=== PATIENT | female | born 1970 | race Two or more races ===

== ENCOUNTER → 2024-05-15 | Outpatient (CLI) | payer BC, SELFPAY ==
[2024-05-15 08:22] LABS: Collection Type, Urine Clean Catch
[2024-05-15 08:58] LABS: Bacteria,Urine Rare; Bilirubin,Urine Negative (Negative); Blood,Urine 2+ (Negative); Clarity,Urine Clear (Clear/Hazy); Color,Urine Lt-Yellow (Lt Yel-Yel); Culture Indicated,Urine Not Indicated; Glucose, Urine Negative (Negative); Ketones,Urine Negative (Negative); Leukocyte Esterase,Urine Negative (Negative); Nitrite,Urine Negative (Negative); PH,Urine 6.5 (5.0-7.0); Protein,Urine Negative (Neg - Trace); RBC,Urine 6 /hpf (0-3); Specific Gravity,Urine 1.017 (1.001-1.035); Squamous Epithelial Cell,Urine 4 /hpf (0-5); Urobilinogen,Urine Negative mg/dL (0.0-1.0); WBC,Urine 1 /hpf (0-5)
[2024-05-15 08:58] LABS: Basophils # (Auto) 0.1 Thou/mm3 (0.0-0.2); Basophils % (Auto) 1 % (0-2.5); Eosinophils # (Auto) 0.2 Thou/mm3 (0.0-0.5); Eosinophils % (Auto) 3 % (0-10); Hematocrit 41.5 % (36.0-46.0); Hemoglobin 13.8 g/dL (12.0-16.0); Immature Granulocytes % (Auto) 0 % (0-0); Immature Granulocytes Auto 0.03 Thou/mm3 (0.00-0.00); Lymphocytes # (Auto) 2.9 Thou/mm3 (1.0-4.8); Lymphocytes % (Auto) 31 % (10-50); Mean Corpuscular HGB Conc 33.3 g/dl (31.0-37.0); Mean Corpuscular Hemoglobin 29.6 pg (25.0-35.0); Mean Corpuscular Volume 89 fL (80-100); Monocytes # (Auto) 0.7 Thou/mm3 (0.0-0.8); Monocytes % (Auto) 7 % (0-12); Neutrophils # (Auto) 5.5 Thou/mm3 (1.8-7.7); Neutrophils % (Auto) 59 % (37-80); Nucleated Red Blood Cell % 0 /100 WBC (0); Platelet Count 374 Thou/mm3 (140-440); RDW Standard Deviation 40.5 fL (36.4-46.3); Red Blood Count 4.67 Miln/mm3 (4.00-5.20); White Blood Count 9.4 Thou/mm3 (3.6-11.0)
[2024-05-15 09:03] LABS: Glucose Estimated Average 117 mg/dL (80-131); Hemoglobin A1C 5.7 % Hgb (4.8-6.0)
[2024-05-15 09:24] LABS: Alanine Aminotransferase 23 U/L (10-49); Albumin/Globulin Ratio 1.4 (1.2-2.2); Alkaline Phosphatase 55 U/L (46-116); Anion Gap 7 (7-16); Aspartate Amino Transferase 19 U/L (0-34); BUN/Creatinine Ratio 16 Ratio (12-20); Bilirubin,Total 0.4 mg/dL (0.3-1.2); Blood Urea Nitrogen 11 mg/dL (9-23); Calcium 8.7 mg/dL (8.3-10.6); Calcium (Corrected) 8.7 mg/dL (8.5-10.1); Carbon Dioxide 26.8 mMol/L (20.0-31.0); Cardiac Risk Estimate 4.6 RATIO (3.7-5.6); Chloride 108 mMol/L (98-107); Cholesterol 173 mg/dL (132-200); Creatinine (Component) 0.7 mg/dL (0.6-1.3); Globulin 2.8 gm/dL (2.3-3.5); Glucose 103 mg/dL (74-106); HDL Cholesterol 38 mg/dL (40-60); LDL Cholesterol,Calculated 98 mg/dL (0-130); Osmolality,Calculated 282 (275-295); Potassium 4.7 mMol/L (3.4-5.1); Sodium 142 mMol/L (136-145); Thyroid Stimulating Hormone 3.99 uIU/mL (0.55-4.78); Total Protein 6.8 gm/dL (5.7-8.2); Triglycerides 183 mg/dL (30-150); eGFR > 60 See Note
== END | disposition home or self-care (01) ==
LOC: COPL 06:43
PROVIDERS: PCP Nurse Practitioner Family; Referring Provider Nurse Practitioner Family; Visit Provider Nurse Practitioner Family
DX: Z00.00 Encounter for general adult medical examination without abnormal findings (principal)
CPT/HCPCS: 36415; 80053; 80061; 81001; 83036; 84443; 85025

== ENCOUNTER 2024-09-09 18:16 | Emergency (ER) | payer BC, SELFPAY ==
[2024-09-09 18:17] VITALS: BMI 57.6
--- NOTE | 2024-09-09 19:00 | EKG_ITS ---
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
[2024-09-09 19:26] VITALS: BP 138/93; PULSE 86; RESP 20; TEMP 36.8; O2SAT 95
--- NOTE | 2024-09-09 19:39 | XR_ITS ---
Examination: Upright PA chest single view TECHNIQUE: Upright PA chest single view Date and time: September 09, 20242015 hours Comparison October 04, 2022 INDICATIONS: Seizure one hour ago FINDINGS: No aspiration pneumonia. Normal heart size The osseous structures are intact IMPRESSION: Negative for aspiration pneumonia
--- NOTE | 2024-09-09 19:39 | XR_ITS ---
Examination: CT brain head without contrast. 2-D sagittal coronal reconstructions Date and time of exam:September 09, 2024, 1950 hours Comparison November 03, 2012 INDICATIONS: New onset seizure today with left-sided facial pain CTDI: vol (mGy):83.5 DLP: (mGycm):1075 Technique: Multiple CT axial sections of the brain have been obtained, 5 mm slice thickness. Contrast has not been administered. 2-D sagittal, coronal reconstructions have been obtained Low dose protocols were performed. One or more of the following dose reduction techniques were used; automated exposure control, adjustment of the mA and/or KV according to patient size, use of iterative reconstruction technique. Findings: No significant ventricular enlargement. Intra-axial or extra-axial hemorrhage density is not seen. No mass effect or midline shift Basal cisterns are not remarkable. Fourth ventricle is midline. Cranial vault intact. Retention cyst in the right maxillary antrum Impression: Negative for acute hemorrhage, mass effect or midline shift Consider elective brain MRI follow-up, pre and postcontrast, seizure protocol
--- NOTE | 2024-09-09 19:43 | EDNOTE_ITS ---
ED Seizures RME/HPI General Chief Complaint: Seizure Stated Complaint: SEIZURE ABOUT 40 MIN AGO Time Seen by Provider: 09/09/24 19:39 Arrival date/time: 09/09/24 18:16 53F with history of HTN presents to ED with for possible seizure about 1 hour ago lasting about 15-30 seconds. Patient describes it as a strong muscle cramp. who witnessed it states it was a full-body seizure. is not sure if it patient was arousable during seizure, but is now back at baseline. Patient has not had a seizure before. Limitations: no limitations Related Data Home Medications ?Medication ?Instructions ?Recorded ?Confirmed lisinopril 30 mg tablet 30 mg PO QDAY 10/09/1810/09 Previous Rx's ?Medication ?Instructions ?Recorded dicyclomine 20 mg tablet 20 mg PO QID PRN abdominal p ain 10/09/18 #30 tabs ondansetron HCl 4 mg tablet 4 mg PO QID PRN nausea and 10/09/18 (Zofran) vomiting #14 tabs Allergies Allergy/AdvReac Type Severity Reaction Status Date / Time Penicillins Allergy Intermediate Swelling Verified 09/09/24 18:20 of Lip/Tongue/Throat Review of Systems Review of Systems Systems Reviewed: All systems reviewed, normal except as documented Constitutional Constitutional: Reports system reviewed and no additional complaints, except as documented, Denies fever(s) and Denies headache(s) ENT Ears, Nose, Mouth, and Throat: Denies disequilibrium and Denies headache(s) Cardiovascular Cardiovascular: Reports system reviewed and no additional complaints, except as documented, Denies chest pain and Denies dyspnea Respiratory Respiratory: Reports system reviewed and no additional complaints, except as documented, Denies cough and Denies dyspnea Gastrointestinal Gastrointestinal: Reports system reviewed and no additional complaints, except as documented, Denies abdominal pain, Denies nausea and Denies vomiting Neurologic Neurologic: Reports system reviewed and no additional complaints, except as documented, Reports as per HPI, Denies confusion, Reports convulsions, Denies disequilibrium and Denies headache(s) Psychiatric Psychiatric: Denies confusion Past Medical History Past Medical History CARDIAC: Negative Cardiac Disorders or Congestive Heart Failure RESPIRATORY: Negative Chronic Obstructive Pulmonary Disease (COPD) or Asthma GENITOURINARY: Negative Renal Disease ENDOCRINE: Negative Diabetes Mellitus Type 1 or Diabetes Mellitus Type 2 HEMATOLOGIC: Negative Sickle Cell Disease Social History SMOKING STATUS: Never smoker ED Exam General Limitations: Present no limitations General appearance: Present alert and in no apparent distress Head Head exam: Present atraumatic Eye Eye exam: Present normal appearance, PERRL and EOMI ENT ENT exam: Present normal exam, normal oropharynx and mucous membranes moist Neck Neck exam: Present normal inspection, full ROM and trachea midline Chest Chest inspection: Present normal inspection and symmetric chest wall rise Respiratory Respiratory exam: Present normal lung sounds bilaterally Cardiovascular Cardiovascular exam: Present regular rate, normal rhythm and normal heart sounds Abdominal Exam Abdominal exam: Present soft and normal bowel sounds Extremities Exam Extremities exam: Present normal inspection and full ROM Back Exam Back exam: Present normal inspection and full ROM Neurological Exam Neurological exam: Present alert, oriented X3 and CN II-XII intact Psychiatric Psychiatric exam: Present normal affect and normal mood Skin Skin exam: Present warm, dry, intact and normal color Course Quality Measures none Orders Category Date Time Status Blood glucose [Bedside Blood Glucose] NOW Care 09/09/24 19:00 Completed EKG (ED ONLY) *Do not use* NOW Care 09/09/24 19:[address] head/brain wo con Stat Exams 09/09/24 19:39 Completed EKG (ED Only) Stat Exams 09/09/24 19:00 Draft XR chest 1V portable Stat Exams 09/09/24 19:39 Completed CBC Stat Lab 09/09/24 20:40 Completed Comprehensive Metabolic Panel Stat Lab 09/09/24 20:40 Completed Drug Screen,Urine Stat Lab 09/09/24 19:40 Completed Lactate (Lactic Acid) Stat Lab 09/09/24 20:40 Completed Magnesium Stat Lab 09/09/24 20:40 Completed Troponin I Stat Lab 09/09/24 20:40 Completed Urinalysis Stat Lab 09/09/24 19:40 Completed Vital Signs Vital signs: Vital Signs Temperature 98.2 F 09/09/24 19:26 Pulse Rate 86 09/09/24 19:26 Respiratory Rate 20 09/09/24 19:26 Blood Pressure 138/93 H 09/09/24 19:26 Pulse Oximetry (%) 95 09/09/24 19:26 Oxygen Delivery Method Room Air 09/09/24 19:26 O2 at 95% on RA and WNLs Seizure MDM Narrative MDM Narrative:: 53F with history of HTN presents to ED with for possible seizure about 1 hour ago lasting about 15-30 seconds. Patient describes it as a strong muscle cramp. who witnessed it states it was a full-body seizure. is not sure if it patient was arousable during seizure, but is now back at baseline. Patient has not had a seizure before. Physical exam reveals clear lungs. RRR. Normal WOB. Patient is afebrile, calm, and alert. Speech normal. Gait normal. EKG is NSR. BS low 100s. CXR normal. CT head normal. Labs all unremarkable. Tox screen neg. UA clean. Counseled to follow-up with PCP for possible referral to neurologist. Unlikely true seizure. Patient data External records reviewed:: [facility] previous records Clinical information provided by:: patient Social determinants that could affect healthcare access:: none Patient has the following chronic illnesses:: HTN How is presenting disease/condition affected by chronic disease/condition?: exacerbated by Evaluation data The following diagnostics were reviewed and interpreted by me:: lab results, radiology exam(s) and EKG tracing(s) Lab and/or radiology exams considered but not ordered:: ordered Interpretation Summary: above Medications / Prescriptions Medications or Prescriptions considered but not ordered:: not ordered Medication administrations:: n/a Consultations Consultation(s) initiated? (list below): No Diagnosis Seizure Differential Diagnosis: intractable seizure disorder, febrile convulsion, focal seizure, generalized seizure, new onset seizure, epileptic seizure, status epilepticus and other (seizure-like activity) Most likely diagnosis given after review of the tests above:: seizure-like activity Admission Indicated Admission indicated?: not indicated Admission Request Was there a request for admission?: No Disposition Plan Disposition Plan: Discharge Discharge Attestation Discharge Attestation: The patient and all family members were given an opportunity to ask questions and understood the discharge instructions. Discharge instructions specifically effects, indications for sooner follow up or return to the emergency department, and the expected course of current diagnosis. Patient condition: Stable Discharge Plan Plan Patient Disposition: HOME (Self Care) Discharge Disposition comment: Stable Prescriptions/Referrals Prescriptions/Med Rec: No Action lisinopril 30 mg Tablet 30 mg PO QDAY ondansetron HCl [Zofran] 4 mg tablet 4 mg PO QID PRN (Reason: nausea and vomiting) Qty: 14 0RF dicyclomine 20 mg tablet 20 mg PO QID PRN (Reason: abdominal pain) Qty: 30 0RF Referrals: Claire Cary FNP [Primary Care Provider] - In 1 week Problem List Clinical Impression: Seizure-like activity Patient/Caregiver Discharge Instructions Education Materials: ED Seizure New Onset Unknown ... Additional Instructions: Please follow-up with PCP within 24-48 hours and return immediately if symptoms worsen. See PCP for possible referral to neurologist. Print Language: Nauruan Stand Alone Forms: Patient Portal Info Letter PARVIN/EAGLE Supervising Physician PARVIN/EAGLE Supervising Physician: Dr. Hughes
[2024-09-09 20:20] LABS: Collection Type, Urine Clean Catch
[2024-09-09 20:56] LABS: Lactate (Lactic Acid) 1.3 mMol/L (0.4-2.0)
[2024-09-09 21:07] LABS: Bacteria,Urine Rare; Bilirubin,Urine Negative (Negative); Blood,Urine 2+ (Negative); Clarity,Urine Clear (Clear/Hazy); Color,Urine Lt-Yellow (Lt Yel-Yel); Glucose, Urine Negative (Negative); Ketones,Urine 1+ (Negative); Leukocyte Esterase,Urine Negative (Negative); Nitrite,Urine Negative (Negative); PH,Urine 6.0 (5.0-7.0); Protein,Urine Negative (Neg - Trace); RBC,Urine 5 /hpf (0-3); Specific Gravity,Urine 1.023 (1.001-1.035); Squamous Epithelial Cell,Urine 2 /hpf (0-5); Urobilinogen,Urine Negative mg/dL (0.0-1.0); WBC,Urine 2 /hpf (0-5)
[2024-09-09 21:08] LABS: Basophils # (Auto) 0.0 Thou/mm3 (0.0-0.2); Basophils % (Auto) 0 % (0-2.5); Eosinophils # (Auto) 0.2 Thou/mm3 (0.0-0.5); Eosinophils % (Auto) 2 % (0-10); Hematocrit 42.8 % (36.0-46.0); Hemoglobin 14.2 g/dL (12.0-16.0); Immature Granulocytes Auto 0.03 Thou/mm3 (0.00-0.00); Lymphocytes # (Auto) 3.4 Thou/mm3 (1.0-4.8); Lymphocytes % (Auto) 29 % (10-50); Mean Corpuscular HGB Conc 33.2 g/dl (31.0-37.0); Mean Corpuscular Hemoglobin 30.0 pg (25.0-35.0); Mean Corpuscular Volume 90 fL (80-100); Monocytes # (Auto) 0.8 Thou/mm3 (0.0-0.8); Monocytes % (Auto) 7 % (0-12); Neutrophils # (Auto) 7.2 Thou/mm3 (1.8-7.7); Neutrophils % (Auto) 62 % (37-80); Nucleated Red Blood Cell # 0.00 Thou/mm3 (0.00-0.00); Nucleated Red Blood Cell % 0 /100 WBC (0); Platelet Count 337 Thou/mm3 (140-440); RDW Standard Deviation 39.4 fL (36.4-46.3); Red Blood Count 4.74 Miln/mm3 (4.00-5.20); White Blood Count 11.7 Thou/mm3 (3.6-11.0)
[2024-09-09 21:14] LABS: Alanine Aminotransferase 22 U/L (10-49); Albumin, Serum 4.3 gm/dL (3.5-5.0); Albumin/Globulin Ratio 1.3 (1.2-2.2); Alkaline Phosphatase 48 U/L (46-116); Anion Gap 8 (7-16); Aspartate Amino Transferase 22 U/L (0-34); BUN/Creatinine Ratio 16 Ratio (12-20); Bilirubin,Total 0.3 mg/dL (0.3-1.2); Blood Urea Nitrogen 13 mg/dL (9-23); Calcium 9.2 mg/dL (8.3-10.6); Calcium (Corrected) 9.2 mg/dL (8.5-10.1); Carbon Dioxide 24.7 mMol/L (20.0-31.0); Chloride 105 mMol/L (98-107); Creatinine (Component) 0.8 mg/dL (0.6-1.3); Estimated Creatinine Clearance 102.6 mL/min (>60); Globulin 3.2 gm/dL (2.3-3.5); Glucose 102 mg/dL (74-106); Magnesium 2.1 mg/dL (1.6-2.6); Osmolality,Calculated 275 (275-295); Potassium 4.1 mMol/L (3.4-5.1); Sodium 138 mMol/L (136-145); Total Protein 7.5 gm/dL (5.7-8.2); Troponin I < 0.002 ng/mL (0.0-0.045); eGFR > 60 See Note
[2024-09-09 21:19] LABS: Amphetamine/Methamp Scrn,U Negative (Negative); Barbiturate Screen,Urine Negative (Negative); Benzodiazepines Screen,Urine Negative (Negative); Benzoylecgonine Screen, Ur Negative (Negative); Fentanyl Screen,Urine Negative (Negative); Opiate Screen,Urine Negative (Negative); THC Screen,Urine Negative (Negative)
== END 2024-09-09 22:11 | disposition home or self-care (01) ==
PROVIDERS: Physician Assistant; Emergency Provider Emergency Medicine; PCP Nurse Practitioner Family
DX: R56.9 Unspecified convulsions (principal); I10 Essential (primary) hypertension
CPT/HCPCS: 36415; 70450; 71045; 80053; 80307; 81001; 83605; 83735; 84484; 85025; 93005; 99284

== ENCOUNTER 2024-09-18 09:57 | Inpatient (IN) | payer BC, SELFPAY ==
[2024-09-18] VITALS (7 sets, daily range): BP systolic 131–180; BP diastolic 94–114; PULSE 75–100; RESP 17–97; TEMP 36.6–37.3; O2SAT 92–99; BMI 55.1
--- NOTE | 2024-09-18 | XR_ITS ---
Examinations: MRI Brain without intravenous contrast. MRI brain with intravenous contrast MRA brain with intravenous contrast. MRA brain without intravenous contrast MRA neck with intravenous contrast Date and time of exam: September 18, 2024 1433 hours INDICATIONS: Onset ataxia fever seizure left facial weakness beginning 10 days ago Technique: Multiple axial and sagittal images of the brain have been obtained Siemens high-resolution 1.5 Pamela short bore scanner is utilized. Sagittal sections, T1-weighted, TR 500, TE 14 Axial sections proton density and T2-weighted, TR 3,000, TE 34, TR 3,000, TE 91 Inversion recovery axial images, TR 9,260, TE 111, TI 2,500 Diffusion weighted images, axial sections, TR 4,800, TE 128, B value 1,000 Axial sections, ADC map, TR 4,800, TE 128. Contrast images have been obtained post intravenous 19 cc Gadolinium. T1-weighted axial and coronal images post contrast have been obtained. Angiographic images of neck and brain are obtained pre and post contrast. 3-D post processing performed, including brain, extracranial neck arterial maximum intensity projections Findings: Sellaturcica is not enlarged. The optic chiasm and infundibular stalk are not remarkable. Prepontine and interpeduncular cisterns are not enlarged. No localized enlargement of the medulla or betty. Fourth ventricle and cerebellar tonsils normal in position. Subacute hemorrhage is not seen. Fourth ventricle is midline. Mass in the cerebellopontine angle region is not evident. 7th and 8th nerve complexes exhibits symmetry. Globes are symmetrical with no retro-orbital mass. Increased white matter signal not seen Diffusion-weighted images demonstrateno focus of restricted diffusion. Mass-effect upon the ventricular system is not identified. Abnormal contrast enhancement is not seen. MRA brain carotid images no carotid stenoses, no cerebral large vessel occlusions Impression: Negative for acute hemorrhage mass effect or midline shift No acute infarct No MR findings diagnostic for demyelinating disease No carotid stenoses No cerebral large vessel arterial occlusions
--- NOTE | 2024-09-18 10:10 | XR_ITS ---
Examination: CT brain head without contrast. 2-D sagittal coronal reconstructions Date and time of exam:September 18, 2024 1028 hours Comparison September 09, 2024 INDICATIONS: Generalized head pain today CTDI: vol (mGy):52.6 DLP: (mGycm):1078 Technique: Multiple CT axial sections of the brain have been obtained, 5 mm slice thickness. Contrast has not been administered. 2-D sagittal, coronal reconstructions have been obtained Low dose protocols were performed. One or more of the following dose reduction techniques were used; automated exposure control, adjustment of the mA and/or KV according to patient size, use of iterative reconstruction technique. Findings: No significant ventricular enlargement. Intra-axial or extra-axial hemorrhage density is not seen. No mass effect or midline shift Basal cisterns are not remarkable. Fourth ventricle is midline. Cranial vault intact. Retention cysts in the right maxillary antrum Impression: Negative for acute hemorrhage, mass effect or midline shift Advise clinical correlation follow-up accordingly
[2024-09-18 10:23] LABS: Basophils # (Auto) 0.1 Thou/mm3 (0.0-0.2); Basophils % (Auto) 1 % (0-2.5); Eosinophils # (Auto) 0.2 Thou/mm3 (0.0-0.5); Eosinophils % (Auto) 1 % (0-10); Hematocrit 42.1 % (36.0-46.0); Hemoglobin 14.5 g/dL (12.0-16.0); Immature Granulocytes Auto 0.07 Thou/mm3 (0.00-0.00); Lymphocytes # (Auto) 4.3 Thou/mm3 (1.0-4.8); Lymphocytes % (Auto) 27 % (10-50); Mean Corpuscular HGB Conc 34.4 g/dl (31.0-37.0); Mean Corpuscular Hemoglobin 30.0 pg (25.0-35.0); Mean Corpuscular Volume 87 fL (80-100); Monocytes # (Auto) 0.9 Thou/mm3 (0.0-0.8); Monocytes % (Auto) 5 % (0-12); Neutrophils # (Auto) 10.8 Thou/mm3 (1.8-7.7); Neutrophils % (Auto) 66 % (37-80); Nucleated Red Blood Cell # 0.00 Thou/mm3 (0.00-0.00); Nucleated Red Blood Cell % 0 /100 WBC (0); Platelet Count 405 Thou/mm3 (140-440); RDW Standard Deviation 38.9 fL (36.4-46.3); Red Blood Count 4.83 Miln/mm3 (4.00-5.20); White Blood Count 16.3 Thou/mm3 (3.6-11.0)
[2024-09-18 10:40] LABS: INR 1.0 (0.9-1.3); Partial Thromboplastin Time 30.6 Seconds (22.0-36.0); Prothrombin Time 10.9 Seconds (9.0-12.2)
[2024-09-18 10:42] LABS: Alanine Aminotransferase 23 U/L (10-49); Albumin, Serum 4.2 gm/dL (3.5-5.0); Albumin/Globulin Ratio 1.4 (1.2-2.2); Alkaline Phosphatase 56 U/L (46-116); Anion Gap 10 (7-16); Aspartate Amino Transferase 17 U/L (0-34); BUN/Creatinine Ratio 19 Ratio (12-20); Bilirubin,Total 0.3 mg/dL (0.3-1.2); Blood Urea Nitrogen 17 mg/dL (9-23); Calcium 8.5 mg/dL (8.3-10.6); Calcium (Corrected) 8.5 mg/dL (8.5-10.1); Carbon Dioxide 26.1 mMol/L (20.0-31.0); Chloride 106 mMol/L (98-107); Creatinine (Component) 0.9 mg/dL (0.6-1.3); Globulin 3.1 gm/dL (2.3-3.5); Glucose 111 mg/dL (74-106); Magnesium 1.6 mg/dL (1.6-2.6); Osmolality,Calculated 285 (275-295); Potassium 3.9 mMol/L (3.4-5.1); Sodium 142 mMol/L (136-145); Total Protein 7.3 gm/dL (5.7-8.2); eGFR > 60 See Note
--- NOTE | 2024-09-18 10:59 | PD.EDRME ---
Rapid Medical Screening Exam RME Arrival date/time: 09/18/24 09:57 53-year-old female with medical history significant for hypertension presents emergency department today for complaints of involuntary movements patient had a visit here to the hospital as well as a visit to [place] where she was admitted patient reports negative CAT scan and negative MRI Chief Complaint: Weakness Vital signs: Vital Signs Temperature 98.5 F 09/18/24 10:11 Pulse Rate 100 09/18/24 10:11 Respiratory Rate 18 09/18/24 10:11 Blood Pressure 180/100 H 09/18/24 10:11 Pulse Oximetry (%) 95 09/18/24 10:11 Oxygen Delivery Method Room Air 09/18/24 10:11
[2024-09-18 11:08] LABS: Collection Type, Urine Clean Catch
[2024-09-18 11:14] LABS: Bilirubin,Urine Negative (Negative); Blood,Urine 1+ (Negative); Clarity,Urine Clear (Clear/Hazy); Color,Urine Lt-Yellow (Lt Yel-Yel); Glucose, Urine Negative (Negative); Ketones,Urine Negative (Negative); Leukocyte Esterase,Urine Negative (Negative); Nitrite,Urine Negative (Negative); PH,Urine 6.0 (5.0-7.0); Protein,Urine Negative (Neg - Trace); RBC,Urine 7 /hpf (0-3); Specific Gravity,Urine 1.021 (1.001-1.035); Squamous Epithelial Cell,Urine 1 /hpf (0-5); Urobilinogen,Urine Negative mg/dL (0.0-1.0); WBC,Urine 1 /hpf (0-5)
[2024-09-18 11:21] LABS: Amphetamine/Methamp Scrn,U Negative (Negative); Barbiturate Screen,Urine Negative (Negative); Benzodiazepines Screen,Urine Negative (Negative); Benzoylecgonine Screen, Ur Negative (Negative); Fentanyl Screen,Urine Negative (Negative); Opiate Screen,Urine Negative (Negative); THC Screen,Urine Negative (Negative)
--- NOTE | 2024-09-18 11:28 | EDNOTE_ITS ---
ED Weakness RME/HPI General Chief complaint: Weakness Stated complaint: Trouble walking, muscle spasms Time Seen by Provider: 09/18/24 11:24 Arrival date/time: 09/18/24 09:57 RME / HPI RME / HPI Narrative: 53-year-old female patient was brought in by family for evaluation after patient was seen by Dr. Alicea for involuntary movement. Onset of symptoms since 10 days ago as episode of neck stiffness, seizure-like activity, described as arousable during activity, lasting for several minutes. Came to the emergency room, and CT scan was done and all came back unremarkable. Was diagnosed with seizure- like activity. Symptoms is getting worse, went to [place], and was admitted for several days, repeat CT scan and MRI of the brain noncontrast was done and were told that everything is normal. Patient follow-up with PCP today and was concerned since symptoms are now involving both side of the body. Initially it was only on the left side. On my initial evaluation patient now have difficulty ambulating due to involuntary movement. According to the family involuntary movements still observed but less during resting and sleeping. On my initial evaluation, patient was noted to be having involuntary movements look like seizure-like activity however patient is awake and talking. 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 Was started on prednisone and valacyclovir. Patient still taking the medication. Denies any headache. Denies any other complaints. Denies any family history of seizure denies any history of seizure. Patient also denies any history of mental disorder. Related Data Home Medications ?Medication ?Instructions ?Recorded ?Confirmed lisinopril 30 mg tablet 30 mg PO QDAY 10/09/1810/09 Previous Rx's ?Medication ?Instructions ?Recorded dicyclomine 20 mg tablet 20 mg PO QID PRN abdominal p ain 10/09/18 #30 tabs ondansetron HCl 4 mg tablet 4 mg PO QID PRN nausea and 10/09/18 (Zofran) vomiting #14 tabs Allergies Allergy/AdvReac Type Severity Reaction Status Date / Time Penicillins Allergy Intermediate Swelling Verified 09/18/24 10:03 of Lip/Tongue/Throat Review of Systems Review of Systems Narrative Review of Systems: Review of system reviewed and within normal limits except mentioned in HPI ED Exam Narrative Physical exam: VITAL SIGNS: Reviewed. GENERAL APPEARANCE: Alert and interactive, follows commands, no acute distress, visible involuntary muscle stiffness, with seizure like activities HEAD AND FACE: Non-traumatic. ENT: PERRL, pink conjunctivitis, eyelid no trauma, Mucous membrane moist. NECK: Supple, nontender, no nuchal rigidity. CHEST: No tenderness, no crepitus, no paradoxical movement, no retractions. LUNGS: Clear, well ventilated, symmetric, no rales, no wheezing, no ronchi, no stridor, good breath sounds bilaterally. HEART: Regular rate, regular rhythm, no murmur, no gallops. ABDOMEN: Soft, positive bowel sounds, nondistended, no guarding, nontender, no rebound, no masses, RECTAL: Deferred. GENITAL: Deferred. NEUROLOGICAL: Gross motor function intact sensory function intact, Appropriate for age. MUSCULOSKELETAL: low back nontender, full range of motion. EXTREMITIES: Nontender, full range of motion. SKIN: Color pink, dry, no rash, no lacerations, no abrasions, no contusions. LYMPHATICS: Deferred. Course Quality Measures none Orders Category Date Time Status Patient Condition Routine Admission 09/18/24 12:25 Ordered Aspiration precautions NOW Care 09/18/24 12:35 Active COVID-19 Screening Questionnaire NOW Care 09/18/24 11:49 Active Decision to Admit X1 Care 09/18/24 11:49 Completed Intake and Output QSHIFT Care 09/18/24 12:30 Ordered Miscellaneous Nursing Order NOW Care 09/18/24 12:25 Active NPO NOW Care 09/18/24 12:35 Active Notify provider NEEDED Care 09/18/24 12:25 Active Obtain weight NOW Care 09/18/24 12:25 Active Sequential Compression Device QSHIFT Care 09/18/24 12:25 Active Consult to Neurology / Tele-Neurology Stat Cons 09/18/24 11:50 Active Diet NPO (NOW) Diet 09/18/24 12:[address] head/brain wo con Stat Exams 09/18/24 10:10 Completed MR brain wwo MRA brn wo p[place]on w Urgent Exams 09/18/24 Ordered Basic Metabolic Panel AM DRAW Lab 09/19/24 05:00 Ordered Basic Metabolic Panel AM DRAW Lab 09/20/24 05:00 Ordered Basic Metabolic Panel AM DRAW Lab 09/21/24 05:00 Ordered C-Reactive Protein Stat Lab 09/18/24 10:18 Completed CBC AM DRAW Lab 09/19/24 05:00 Ordered CBC AM DRAW Lab 09/20/24 05:00 Ordered CBC AM DRAW Lab 09/21/24 05:00 Ordered CBC Stat Lab 09/18/24 10:18 Completed Comprehensive Metabolic Panel Stat Lab 09/18/24 10:18 Completed Creatine Kinase Stat Lab 09/18/24 10:18 Completed Drug Screen,Urine Stat Lab 09/18/24 11:02 Completed HCG Qualitative,Urine Stat Lab 09/18/24 11:02 Completed Lipid Panel AM DRAW Lab 09/19/24 05:00 Ordered Liver Panel AM DRAW Lab 09/19/24 05:00 Ordered MRSA Nasal Screen Routine Lab 09/18/24 12:25 Ordered Magnesium AM DRAW Lab 09/19/24 05:00 Ordered Magnesium Stat Lab 09/18/24 10:18 Completed Partial Thromboplastin Time Stat Lab 09/18/24 10:18 Completed Phosphorous AM DRAW Lab 09/19/24 05:00 Ordered Prothrombin Time with INR AM DRAW Lab 09/19/24 05:00 Ordered Prothrombin Time with INR Stat Lab 09/18/24 10:18 Completed Sed Rate (ESR) Stat Lab 09/18/24 10:18 Completed Thyroid Stimulating Hormone AM DRAW Lab 09/19/24 05:00 Ordered Urinalysis Stat Lab 09/18/24 11:02 Completed Acetaminophen Tab [Tylenol Tab] Med 09/18/24 12:24 Active 650 mg PO Q6H PRN Ondansetron Inj [Zofran Inj] Med 09/18/24 12:24 Active 4 mg IV Q6H PRN Senna [Senokot] Med 09/18/24 12:24 Active 2 tab PO BID PRN hydrALAZINE INJ [Apresoline Inj] Med 09/18/24 12:36 Active 10 mg IVP Q6HR PRN Code Status Routine Oth 09/18/24 12:24 Ordered Oxygen Delivery DAILY RT 09/18/24 12:25 Active Vital Signs Vital signs: Vital Signs Temperature 98.5 F 09/18/24 10:11 Pulse Rate 100 09/18/24 10:11 Respiratory Rate 18 09/18/24 10:11 Blood Pressure 180/100 H 09/18/24 10:11 Pulse Oximetry (%) 95 09/18/24 10:11 Oxygen Delivery Method Room Air 09/18/24 10:11 Weakness MDM Narrative [facility] Narrative:: 53-year-old female patient was brought in by family for evaluation after patient was seen by Dr. Alicea for involuntary movement. Onset of symptoms since 10 days ago as episode of neck stiffness, seizure-like activity, described as arousable during activity, lasting for several minutes. Came to the emergency room, and CT scan was done and all came back unremarkable. Was diagnosed with seizure- like activity. Symptoms is getting worse, went to [place], and was admitted for several days, repeat CT scan and MRI of the brain noncontrast was done and were told that everything is normal. Patient follow-up with PCP today and was concerned since symptoms are now involving both side of the body. Initially it was only on the left side. On my initial evaluation patient now have difficulty ambulating due to involuntary movement. According to the family involuntary movements still observed but less during resting and sleeping. On my initial evaluation, patient was noted to be having involuntary movements look like seizure-like activity however patient is awake and talking. 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 Was started on prednisone and valacyclovir. Patient still taking the medication. Denies any headache. Denies any other complaints. Denies any family history of seizure denies any history of seizure. Patient also denies any history of mental disorder. Patient workup today all came back unremarkable including CT scan of the head. Urinalysis no UTI negative for drug test I consulted Dr. Kim, neurologist, discussed the case at length, and told me that patient needs to be admitted to make sure was going on or the cause of the symptoms. Patient is needing spinal tap and MRI of the brain. Patient data External records reviewed:: None Clinical information provided by:: patient Social determinants that could affect healthcare access:: none Patient has the following chronic illnesses:: Hypertension How is presenting disease/condition affected by chronic disease/condition?: uneffected by Evaluation data The following diagnostics were reviewed and interpreted by me:: lab results, radiology exam(s) and EKG tracing(s) Lab and/or radiology exams considered but not ordered:: None Interpretation Summary: Laboratory workup all came back unremarkable except for leukocytosis of 16,000. Urinalysis no UTI. CT scan of the head came back unremarkable. Medications / Prescriptions Medications or Prescriptions considered but not ordered:: None Medication administrations:: Medication Administration History Acetaminophen (Acetaminophen 325 Mg Tablet) 650 mg PO Q6H PRN PRN Reason: PAIN 1-3 OR FEVER > 101 Stop: 10/18/24 12:23 Hydralazine HCl (Hydralazine Inj 20 Mg/Ml Vial) 10 mg IVP Q6HR PRN PRN Reason: SBP > 180 Stop: 10/18/24 12:35 Ondansetron HCl (Ondansetron Inj 2 Mg/Ml Inj 2 Ml) 4 mg IV Q6H PRN; Protocol PRN Reason: NAUSEA OR VOMITING Stop: 10/18/24 12:23 Sennosides (Senna Tablet) 2 tab PO BID PRN; Protocol PRN Reason: CONSTIPATION Stop: 10/18/24 12:23 None Consultations Consultation(s) initiated? (list below): Yes Consultation #1 (Physician, Specialty, Details): Dr Dennison, neurologist, thank you Diagnosis Weakness Differential Diagnosis: other (Malingering, pseudoseizure, ataxia) Most likely diagnosis given after review of the tests above:: Seizure-like activity Admission Indicated Admission indicated?: indicated Admission Request Was there a request for admission?: Yes Admission Attestation Admission request attestation: Discussed case with [Dr. Toribio] from Hospitalist service regarding admission. Discussed patients ED course, exam findings, labs, and radiology results. The Hospitalist [agrees] to accept the patient for admission. Disposition Plan Disposition Plan: Admit Discharge Plan Plan Patient Disposition: Admit Acute Care w/in Hospital Problem List Clinical Impression: Seizure-like activity
[2024-09-18 12:57] LABS: C-Reactive Protein 2.2 mg/dL (0.0-0.9); Creatine Kinase 117 U/L (34-171)
[2024-09-18 12:58] LABS: HCG Qualitative,Urine Negative
[2024-09-18 13:00] LABS: Sed Rate (ESR) 31 mm/hr (0-30)
--- NOTE | 2024-09-18 13:03 | PD.RESCONSUL ---
HPI Data of Consult Requesting Physician: Becky Gonzalez MD Admitting Provider: Becky Gonzalez MD Attending Provider: Becky Gonzalez MD Primary Care Provider: EAGLE Jolly Consult Narrative History of present illness: Mr. Higgins is a 53-year-old female with PMHx of HTN (on Lisinopril 30 mg PO daily) who presents to the ED 09/18 with progressive involuntary movements x10 days. Patient accompanied by daughter, [place], and . Symptoms began with left-sided involuntary movements, neck stiffness. Previously seen in ED, CT head unremarkable. Repeat CT and MRI brain w/o done in [place], unremarkable. Diagnosed with Rodgers's palsy and given prednisone and Valacyclovir without symptom improvement. Was seen by PCP due to concern of progressive bilateral symptoms and was sent to the ED by PCP. Patient denies history of heart failure, arrhythmias, diabetes, psychiatric history, autoimmune disorders. atient denies history of alcohol use or recreational drug use. She has had an episode of vasovagal syncope in the past. She does not take any antipsychotics. She has a family history of multiple sclerosis and thyroid cancer. 2 weeks ago patient was given phentermine for weight loss. She only took the medication for 4 days and then stopped due to feeling sick from the medication. Upon interview today patient reports that she is not in pain but she has had these involuntary movements mostly of her head neck and upper extremities bilaterally that have become progressively worse over the past 10 days. She denies headache, abdominal pain, blurry vision, numbness, tingling. She does note bilateral upper extremity weakness but worse on the right side than the left. The only medication that she takes at home is lisinopril. She does not record her blood pressure at home, but she notes that when she goes to the doctors her systolic blood pressure is usually in the 130s to 140s. In the ED patient's blood pressure was initially 180/100, now 148/1 114 in the evening. Daughter notes that patient's voice is more hoarse than normal. cc:: cc: Becky Gonzalez MD Review of Systems Review of Systems Narrative Review of Systems: 14 point ROS negative other than HPI Exam Vital Signs Temp Pulse Resp BP Pulse Ox O2 Del Method 99.2 F 90 18 159/102 H 95 Room Air 09/18/24 12:30 09/18/24 12:30 09/18/24 12:30 09/18/24 12:30 09/18/24 12:30 09/18/24 12:30 Narrative Exam General: No acute distress, well nourished, obese Eye: PERRL, EOMI, normal conjunctiva, no scleral icterus HENT: Normocephalic, atraumatic, hearing intact to conversation at normal volume, moist oral mucosa Neck: Supple, non-tender, no JVD, no lymphadenopathy Lungs: Non-labored respirations, symmetric chest rise Heart: Peripheral pulses intact bilaterally Abdomen: Soft, non-tender, non-distended Musculoskeletal: Involuntary movements of head and neck bilaterally Skin: Skin is warm, dry, no rashes or lesions. Psychiatric: Cooperative, appropriate mood and affect Neurologic: Mental status: Orientation: Oriented to person, place, time, and situation Communication: Patient is cooperative and can follow simple instructions Language: Speech fluent, normal rate and volume, comprehension intact Cranial nerves: CN II: Visual lovelace intact CN III: Pupils equal, round, and reactive to light CN III, IV, : No gaze deviation, no nystagmus Horizontal pursuit: intact Vertical pursuit: intact Ptosis: none CN V: Facial sensation to light touch intact bilaterally R>L at the forehead, cheeks, and jaw line CN VII: Unable to determine if face symmetric 2/2 persistent facial twitches CN VIII: Able to hear and respond to conversation at normal volume, intact to finger rub CN IX, X: Palate elevation symmetric, uvula midline CN XI: Head turn and shoulder shrug strong, symmetric bilaterally CN XII: Normal tongue protrusion without deviation, no fasciculations Motor: Normal bulk and tone No atrophy Bilateral abnormal movement of head, mouth, and neck Muscle strength: Shoulder abduction: R 5/5 L 5/5 Elbow flexion: R 5/5 L 5/5 Elbow extension: R 5/5 L 5/5 Hip flexion: R 5/5 L 5/5 Hip extension: R 5/5 L 5/5 Knee flexion: R 5/5 L 5/5 Knee extension: R 5/5 L 5/5 Sensory: Light touch intact in upper and lower extremities R>L Reflexes: Biceps (C5-6): R 2+ L 2+ Brachioradialis (C5-6): R 2+ L 2+ Triceps (C7-8): R 2+ L 2+ Patellae (L3-4): R 2+ L 2+ Achilles (S1-2):R 2+ L 2+ No clonus Cerebellum: RUE: No dysmetria (finger to nose) LUE: No dysmetria (finger to nose) Gait: Patient able to stand without support, able to take several steps without walker Results Labs 09/18/24 10:18 09/18/24 10:18 Labs: Short CBC 09/18/24 Range/Units 10:18 WBC 16.3 H (3.6-11.0) Thou/mm3 Hgb 14.5 (12.0-16.0) g/dL Hct 42.1 (36.0-46.0) % Plt Count 405 D (140-440) Thou/mm3 BMP 09/18/24 10:18 Sodium 142 Potassium 3.9 Chloride 106 Carbon Dioxide 26.1 BUN 17 Creatinine 0.9 Glucose 111 H Calcium 8.5 Cardiac Enzymes 09/18/24 Range/Units 10:18 Total Creatine Kinase 117 (34-171) U/L Liver Function 09/18/24 Range/Units 10:18 Total Bilirubin 0.3 (0.3-1.2) mg/dL AST 17 (0-34) U/L ALT 23 (10-49) U/L Alkaline Phosphatase 56 (46-116) U/L Albumin 4.2 (3.5-5.0) gm/dL Urine 09/18/24 Range/Units 11:02 Urine Color Lt-Yellow (Lt Yel-Yel) Urine Clarity Clear (Clear/Hazy) Urine pH 6.0 (5.0-7.0) Ur Specific [place] 1.021 (1.001-1.035) Urine Protein Negative (Neg - Trace) Urine Glucose (UA) Negative (Negative) Quality Measures Quality Measures none Medications Home Medications and Allergies Home Medications ?Medication ?Instructions ?Recorded ?Confirmed ?Type lisinopril 30 mg tablet 20 mg PO QDAY 10/09/18 09/18/24 History prednisone 20 mg tablet 20 mg PO TID 09/18/24 09/18/24 History valacyclovir 1 gram tablet 1,000 mg PO TID 09/18/24 09/18/24 History Allergies Allergy/AdvReac Type Severity Reaction Status Date / Time Penicillins Allergy Intermediate Swelling Verified 09/18/24 10:03 of Lip/Tongue/Throat Visit Medications Acetaminophen (Acetaminophen 325 Mg Tablet) 650 mg PO Q6H PRN PRN Reason: PAIN 1-3 OR FEVER > 101 Stop: 10/18/24 12:23 Hydralazine HCl (Hydralazine Inj 20 Mg/Ml Vial) 10 mg IVP Q6HR PRN PRN Reason: SBP > 180 Stop: 10/18/24 12:35 Ondansetron HCl (Ondansetron Inj 2 Mg/Ml Inj 2 Ml) 4 mg IV Q6H PRN; Protocol PRN Reason: NAUSEA OR VOMITING Stop: 10/18/24 12:23 Sennosides (Senna Tablet) 2 tab PO BID PRN; Protocol PRN Reason: CONSTIPATION Stop: 10/18/24 12:23 Assessment & Plan Plan #Abnormal movements Patient came to the ED with concern for progressive bilateral involuntary movements including the face, neck, and upper extremities. Previous workup at [facility] and [place] was negative for stroke, demyelinating disease, or metabolic disturbances that might be causing her symptoms. She follows with her PCP closely and was previously prescribed Phentermine for weight loss which she discontinued after 4 days due to adverse effects. She was also diagnosed with [place] palsy at [place] and was prescibred axyxlovir and prednisone without symptom improvement. FMHx MS, thyroid cancer. Patient denies previous episodes of blurry vision/double vission/acute vision loss, or acute weakness/sensation loss in upper or lower extremities. A1C 5.7 on 05/15/24, UA negative for UTI, UDS negative CT head and brain MRA 09/18 was unremarkable. CRP mildly elevated 2.2 Home meds: Lisinopril 30 mg DDX: complicated migraines, conversion disorder Plan: - Patient was informed that her symptoms were most likely due to stress. Counseled patient on importance of exercise, healthy diet, and psychiatric/psychological services for her symptoms. Patient reported that she did not want to stay in the hospital overnight. - No need for LP or EEG at this time Plan discussed with Dr. Jesi Perez, PGY1 Attending Provider Attestation/Addendum I personally have seen and examined the patient at the bedside and I agreed with resident's findings, assessment and plan of care. Patient's movements of the head and neck with distractibility makes me suspect conversion disorder. No need for any further workup at at this time. She needs psych counseling. Patient decided to leave the ER tonight and follow-up with her primary care physician as an outpatient.
--- NOTE | 2024-09-18 13:28 | ESHP_ITS ---
<Statement entered by Becky Gonzalez MD - 09/29/24 14:15> I reviewed above note and agree with findings and plans. I have also personally examined the patient with medicine team and went over assessment and plan with medical team including underwriting internship and resident physician. Documentation for date of: 09/18/24 Senior resident attestation: Patient evaluated and examined at the bedside, plan of care discussed with rest of the team including my attending physician, except as noted. 53-year-old female, past medical history hypertension, symptoms on presentation facial weakness, and generalized weakness. Noted to have dyskinesias, contracted upper extremities at elbow with abnormal jerking movements, Waxing and waning symptoms, per daughter symptoms completely resolved for a few minutes during the day, and patient is able to walk but then symptoms recur. No family history of Amara's disease or dyskinesias. Though did report 1 of patient's sisters was recently diagnosed with multiple sclerosis. Patient was also taking phentermine for weight loss, up to until 2 weeks ago when she stopped taking it due to adverse events. History of low-grade fever 10 days ago which resolved, currently afebrile for the past few days, was diagnosed at the hospital in [place] with Rodgers's palsy, received valacyclovir and oral steroids. At this point less concerned about seizure disorder or stroke, will get MRI/MRA to rule out demyelination disease, neurology consulted, Dr. Dennison recommended holding off on IV steroids or antibiotics as less likely bacterial meningitis, though concern for autoimmune encephalitis stays high due to presentation, recommended lumbar puncture, IR guided lumbar puncture was ordered. Will continue to observe, admit to medical floor. Quresh PGY3 HPI History of Present Illness History of present illness: Patient is a 53 year-old female with past medical history of hypertension who presented to the ED on 09/18/2024 with worsening left sided lower facial weakness and left lower extremity weakness for the past 10 days. Daughter was present in the room. Per daughter, there were moments throughout the past week where patient recovered spontaneously for a few minutes before re-experiencing symptoms. Patient was admitted to hospital in [place]. Repeat CT head was negative. MRA was ordered but not completed. Was diagnosed with possible Rodgers's palsy and was discharged with prednisone and valacyclovir. Of note, patient was taking phenteramine for weight loss but stopped 2 weeks ago due to adverse effects. Patient denies any other new medications. Patient has been compliant with her medications. Patient had follow-up with PCP today and was told to come to ED are because of concern of worsening symptoms. At baseline patient is able to ambulate however she currently has difficulty ambulating due to involuntary movement and uses walker. Patient is alert and oriented x 3, conversational. Per review of medical records, patient was admitted for possible seizure on 09/09/2024. CT head was negative and lactic acid was within normal limits. ED Course: -Initial vitals were BP 159/102, HR 90, RR 20, temp 99F, 95% on RA -Labs/imaging significant for WBC 16.3 w elevated neutrophil count, CRP 2.2, UA +1 blood but negative for UTI, Utox negative. CT head unremarkable. -Patient was admitted for neurological work up, with concern for encephalitis. Review of Systems: +left lower facial droop, +generalized weakness, +dyskinesia Review of systems otherwise negative except what is mentioned above. Past Medical History: Hypertension Family History: Mother and sister have multiple sclerosis, denies family history of seizures Surgical History: None Social History: Denies history of smoking, denies current alcohol use, denies recreational drug use. Current Medications: Lisinopril, prednisone 20 mg, acyclovir (Source: daughter brought home meds) Allergies: Penicillin (anaphylaxis, hives) Exam Vital Signs Temp Pulse Resp BP Pulse Ox O2 Del Method 99.2 F 90 18 159/102 H 95 Room Air 09/18/24 12:30 09/18/24 12:30 09/18/24 12:30 09/18/24 12:30 09/18/24 12:30 09/18/24 12:30 Narrative Exam Physical Exam General: Awake and in no acute distress. Conversational and non-toxic appearing. Obese. HEENT: Normocephalic, atraumatic, mucous membranes moist. Heart: Regular rate and rhythm, normal S1 and S2, no murmurs appreciated. Lungs: Clear to auscultation with no wheezing or crackles. Abdomen: Soft, nondistended, nontender, positive bowel sounds. No guarding or rebound tenderness. Neurologic: Alert and oriented x3, left lower facial droop, no right sided facial weakness noted. All other cranial nerves intact. 4/5 strength in all extremities bilaterally. No other focal neurological deficits. Extremities: No edema. Skin: No rash or ecchymoses. Results: Labs 09/18/24 10:18 09/18/24 10:18 Labs: Short CBC 09/18/24 Range/Units 10:18 WBC 16.3 H (3.6-11.0) Thou/mm3 Hgb 14.5 (12.0-16.0) g/dL Hct 42.1 (36.0-46.0) % Plt Count 405 D (140-440) Thou/mm3 BMP 09/18/24 10:18 Sodium 142 Potassium 3.9 Chloride 106 Carbon Dioxide 26.1 BUN 17 Creatinine 0.9 Glucose 111 H Calcium 8.5 Cardiac Enzymes 09/18/24 Range/Units 10:18 Total Creatine Kinase 117 (34-171) U/L Liver Function 09/18/24 Range/Units 10:18 Total Bilirubin 0.3 (0.3-1.2) mg/dL AST 17 (0-34) U/L ALT 23 (10-49) U/L Alkaline Phosphatase 56 (46-116) U/L Albumin 4.2 (3.5-5.0) gm/dL Urine 09/18/24 Range/Units 11:02 Urine Color Lt-Yellow (Lt Yel-Yel) Urine Clarity Clear (Clear/Hazy) Urine pH 6.0 (5.0-7.0) Ur Specific [place] 1.021 (1.001-1.035) Urine Protein Negative (Neg - Trace) Urine Glucose (UA) Negative (Negative) Quality Measures Quality Measures none Medications Home Medications and Allergies Home Medications ?Medication ?Instructions ?Recorded ?Confirmed ?Type lisinopril 30 mg tablet 20 mg PO QDAY 10/09/1809/18 History prednisone 20 mg tablet 20 mg PO TID 09/18/24 History valacyclovir 1 gram tablet 1,000 mg PO TID 09/18/24 History Allergies Allergy/AdvReac Type Severity Reaction Status Date / Time Penicillins Allergy Intermediate Swelling Verified 09/18/24 10:03 of Lip/Tongue/Throat Visit Medications Acetaminophen (Acetaminophen 325 Mg Tablet) 650 mg PO Q6H PRN PRN Reason: PAIN 1-3 OR FEVER > 101 Stop: 10/18/24 12:23 Hydralazine HCl (Hydralazine Inj 20 Mg/Ml Vial) 10 mg IVP Q6HR PRN PRN Reason: SBP > 180 Stop: 10/18/24 12:35 Ondansetron HCl (Ondansetron Inj 2 Mg/Ml Inj 2 Ml) 4 mg IV Q6H PRN; Protocol PRN Reason: NAUSEA OR VOMITING Stop: 10/18/24 12:23 Sennosides (Senna Tablet) 2 tab PO BID PRN; Protocol PRN Reason: CONSTIPATION Stop: 10/18/24 12:23 Assessment & Plan Plan Patient is a 53 year-old female with past medical history of hypertension who presented to the ED on 09/18/2024 with worsening left sided lower facial weakness and left lower extremity weakness, admitted for neurological work up to rule out stroke and due to concern for encephalitis. #Dyskinesia #Concern for encephalitis #Family History of Multiple Sclerosis Differential: autoimmune encephalitis, phentermine toxicity, bacterial encephalitis, meningitis, seizure, stroke, Parkinson's disease, Pisgah's disease, prion disease Consulted neurology for recommendations. Per neurology, although patient has mild fever and leukocytosis, unlikely acute bacterial encephalopathy given duration of same symptoms and negative Brudzinski sign. CRP 2.2. CT head 09/18 was unremarkable, as was [address] images at [place]. MRI was ordered at [place] but not completed. Patient was seen in ER 09/09 for potential seizure (lactic acid was 1.3) however unlikely seizure as patient is not in a post ictal state (conversational, alert and oriented x3). Patient presents with dyskinesia, has jerking neck movements and contracted arms. Neurology recommended against antibiotics and steroids, will wait for LP and MRI results. Of note, patient had been on phentermine for weight loss but discontinued 2 weeks ago due to adverse side effects. Patient's mother has multiple sclerosis and sister was recently diagnosed as well. - LP for CSF exam - MRI for MS and stroke - EEG to rule out seizures - NPO for aspiration precautions, pending bedside swallow #Leukocytosis, mild Unclear etiology. UA is unremarkable. Possibly reactive secondary to steroids. - Continue to monitor CBC - Pending LP #History of hypertension Takes lisinopril at home. - S/p hydralazine 10 mg IVP - Hold home linsinopril #History of [place] Palsy Diagnosed at previous admission. On physical exam, patient has left lower facial weakness. Has been taking valcyclovir and prednisone. - Hold medications - Pending neurology recommendations as above Health Maintenance Disposition: neurological work up DVT prophylaxis: SCDs GI prophylaxis: Zofran for nausea Diet: NPO, concern for swallow difficulty CODE STATUS: DNR Patient plan of care was discussed with the senior resident, Dr. Solis, and attending physician, Dr. Gonzalez . Sherice Villarreal, PGY-1
--- NOTE | 2024-09-18 13:42 | PC.CC ---
Patient is a 53 year-old who presents to R/O Seizure. Carla ANSARI made [id number] contact with patient. ASW introduced self, role, and reason for visit. Patient appeared alert and oriented to self, location, and situation. At bedside was patient's daughter, Ana Cristina Higgins whom patient provided verbal consent to remain in the room. Patient was pleasant and engaged in initial assessment. Patient confirmed information on demographics and reports to living with her adult children and , Shawn Higgins . Patient has an [employer] Directive and in the event she is unable to make her own medical decisions she has appointed her friend, Sage Dennis who is also listed on the [employer] Directive. Per patient at home she ambulates with a front wheel walker and her help her complete her ADLs. Patient does not require any other DME. Patient's primary provider is Claire Cary and pharmacy of choice is [facility]. Upon discharge the patient plans to return back home. immigration services officer to follow up with any discharge needs.
--- NOTE | 2024-09-18 16:47 | RESP.EEG ---
DR SPIVEY MADE AWARE EEG WILL NOT BE COMPLETED TILL 09/19 DUE TO NO TECH 09/18 NOC SHIFT
--- NOTE | 2024-09-18 20:23 | PC.NURSE ---
Pt signed out AMA. Pt was awake, alert, GCS 15, displaying no signs of acute distress. Pt verbalized understanding of risks of leaving AMA. Pt agreed to follow up with her PCP outpatient and would return to ED for new or worsening symptoms. Pt left with family at bedside and politely declined wheelchair assistance out to private vehicle.
--- NOTE | 2024-09-18 20:27 | PD.RESEVENT ---
Documentation for date of: 09/18/24 Event Note Event Note: Called around 8 PM on 09/18 from ED nurse regarding patient in ED 19 requesting to leave AMA. Patient seen and examined in hospital bed; alert oriented x 3 and answering questions appropriately. Patient states that neurology came and saw her while she was being admitted and told her that her condition is likely secondary to stress related disorder. I explained to the patient that it would not be safe for her to leave at this time as there are still some pending lab work and that the primary team will still work her up for her neurologic condition. Patient is adamant that she would like to leave and she states that she already has an appointment set up with her PCP. Told the patient that she is advised to come back to the ED if there are any new neurologic changes or any other concerning symptoms. Patient understands and is still adamant that she would like to leave AMA. Attending made aware that the patient left AMA. Yg Ireland, DO PGY-2 Internal Medicine - [facility]
== END 2024-09-18 20:23 | disposition left against medical advice (07) | DRG 93 ==
LOC: SERX 10:28 → SERHOLD 12:57
PROVIDERS: Nurse Practitioner Primary Care; Admitting Provider Internal Medicine; Emergency Provider Emergency Medicine; PCP Nurse Practitioner Family; Visit Provider Internal Medicine
DX: G24.9 Dystonia, unspecified (principal); I10 Essential (primary) hypertension; D72.829 Elevated white blood cell count, unspecified; G51.0 Bell's palsy; Z66 Do not resuscitate; Z53.29 Procedure and treatment not carried out because of patient's decision for other reasons; Z88.0 Allergy status to penicillin
CPT/HCPCS: 36415; 70450; 70546; 70548; 70553; 80048; 80053; 80061; 80076; 80307; 81001; 81025; 82306; 82550; 82607; 82746; 83735; 84100; 84443; 85025; 85610; 85652; 85730; 86140; 86780; 87070; 87081; 87205; A9579